=== PATIENT | female | born 1985 | race African-American/Black ===

== ENCOUNTER → 2023-04-17 | Emergency (ER) | payer OTHER ==
[~2023-04-17] MED LIST: CEFTRIAXONE 500 MG/VIAL ONE; KETOROLAC 30 MG/ML INJ ONE; MORPHINE 4 MG/ML SYR ONE; NA CHLORIDE 0.9% 1,000 ML ONE; ONDANSETRON 4 MG/2 ML VIAL ONE; PROMETHAZINE INJ 25 MG/ML AMP ONE
[2023-04-17 10:35] LABS: Absolute Lymphocytes (CBC) 1.7 K/uL (0.7-4.9); Hematocrit 33.3 % (36.0-45.0); Lymphocytes % 9.1 % (15.3-44.8); MCV 81.4 fL (80-100); MPV 8.5 fL (7.6-11.3); Platelets 221 thou/uL (152-406); RBC Red Blood Cell Count 4.09 M/uL (3.86-4.86)
[2023-04-17 10:49] LABS: Potassium 3.9 mEq/L (3.5-5.1)
--- NOTE | 2023-04-17 11:20 | RAD REPORT ---
EXAM DESCRIPTION: US - Pelvis Complete - 04/17/2023 10:53 am CLINICAL HISTORY: ABD PAIN COMPARISON: No comparisons TECHNIQUE: Sonographic grayscale and color flow images of the pelvis were obtained through transabd ominal approach. FINDINGS: The uterus is normal in size, measuring 9.3 cm in long axis. Nonspecific throughout hetero geneity. Ill-defined fibroid along the left uterine wall measuring 2.3 x 1.7 x 1.8 cm. The endometrial stripe measures 6 mm, normal. The right ovary measures 5.9 x 3.6 x 3.9 cm. Bilobed 4.2 cm cyst or dominant follicle in the right ov phil with thin septation. Tubular fluid-filled structure measuring 1.1 cm in diameter adjacent to the right ovary, may represent an area of a hydrosalpinx. No solid or otherwise suspicious adnexal masses . Normal Doppler blood flow was demonstrated to the right ovary. The left ovary could not be visualized due to over shadowing bowel gas. Trace pelvic fluid. IMPRESSION: Tubular right parovarian fluid-filled structure, may represent hydrosalpinx. Dominant cyst or follicle in the right ovary, bilobed in appearance, measuring 4.2 cm, likely a physi ologic nature. Follow-up ultrasound in 6-10 weeks is recommended. Likely physiologic trace pelvic fluid. Small left uterine wall fibroid measuring 2.3 cm. Nonvisualization of the left ovary limits evaluation.
[2023-04-17 11:30] LABS: Specific Gravity 1.022 (1.005-1.030)
[2023-04-17 11:35] LABS: Specific Gravity 1.022 (1.005-1.030); Urine Bacteria None Seen /HPF (<20); Urine Bilirubin NEGATIVE (Negative); Urine Blood 3+ (Negative); Urine Clarity Turbid (Clear); Urine Color Light-Yellow (Yellow); Urine Glucose NEGATIVE (Negative); Urine Mucus Slight /HPF (None Seen); Urine Protein NEGATIVE (Negative); Urine Sperm Present (None Seen); Urine Urobilinogen Normal (Normal); Urine pH 7.5 (5.0-7.0)
--- NOTE | 2023-04-17 11:56 | RAD REPORT ---
EXAM DESCRIPTION: CT - Abdomen Pelvis W Contrast - 04/17/2023 11:10 am CLINICAL HISTORY: ABD PAIN COMPARISON: Pelvis Complete dated 04/17/2023 TECHNIQUE: Thin cut axial CT imaging of the abdomen and pelvis was performed following intravenous a dministration of 100 mL Isovue 300. Multiplanar reformats were generated and reviewed. All CT scans are performed using dose optimization technique as appropriate and may include automated exposure control or mA/KV adjustment according to patient size. FINDINGS: No suspicious findings in the lung bases. The liver, spleen, adrenal glands, and pancreas show no suspicious findings. Gallbladder was surgical ly removed. Symmetric renal function is seen with no hydronephrosis or suspicious renal mass. No dilated bowel loops or bowel wall thickening. Appendix is unremarkable. No free air, fluid collect ions, inflammatory stranding. Trace free fluid is seen in the pelvis. No hernia, mass or bulky lympha denopathy. Right adnexal bilobed 5.3 cm cyst with thin septation, probably corresponds to the ovarian cyst seen on ultrasound. Posterior to this, an ill-defined cystic lesion is present, which may be paraovarian i n location, measuring 6.7 x 3.6 cm. Another tubular cystic lesion is present more anteriorly and furt her laterally, measuring 3.1 x 1.3 cm, which suggests a component of fallopian tube distention. Heter ogeneous enhancing prominent soft tissue measuring 3.9 x 3.3 cm is interposed between this component at the bilobed cyst, which may be of ovarian or tubal origin, and is nonspecific. Uterus shows some myometrial fullness posteriorly and heterogeneity suggesting underlying fibroids, w ith small nabothian cysts. The urinary bladder is decompressed limiting evaluation. No suspicious bony findings. IMPRESSION: Right ovarian and paraovarian cystic lesions as described above, with a 3.9 cm region of heterogeneously enhancing asymmetric right adnexal soft tissue prominence, and a tubular fluid-fille d component suggesting hydrosalpinx. Small volume free fluid is seen in the pelvis. While findings ar e nonspecific, possibility of pelvic inflammatory disease should be considered. Follow-up pelvic imag ing, at least with ultrasound, should be considered following resolution of any acute symptoms, to ex clude absence of an underlying suspicious mass.
--- NOTE | 2023-04-17 12:19 | EDPHYS ---
Physician Documentation [facility] Name: Halie Malcolm Age: 37 yrs Sex: Female : 1985 Arrival Date: 04/17/2023 Time: 09:34 Bed 3 Private MD: ED Physician Shawn King HPI: 04/17 10:00 This 37 yrs old Black Female presents to ER via Wheelchair with complaints of Abdominal jh7 Pain. 10:00 The patient presents with abdominal pain right lower quadrant. Onset: The jh7 symptoms/episode began/occurred 3 week(s) ago. The patient presents with pain that is acute, with no known mechanism of injury. Onset: The symptoms/episode began/occurred 3 week(s) ago. The pain does not radiate. Associated signs and symptoms: Pertinent positives: abdominal pain, nausea, Pertinent negatives: chest pain, dysuria, fever, hematuria, vomiting, weakness. 37-year-old female presents with right-sided abdominal/pelvic pain for the past 3 weeks. She reports that she was due to start her cycle 2 weeks ago and began spotting brown this morning. Describes the pain as cramping and denies any urinary symptoms or fever. She states that she feels nauseous but has not vomited. History of a tubal ligation and a cholecystectomy.. 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 - Social history:: Smoking status: Patient denies any tobacco usage or history of. ROS: 10:00 Constitutional: Negative for fever, chills, and weight loss, Eyes: Negative for injury, jh7 pain, redness, and discharge, Neck: Negative for injury, pain, and swelling, Cardiovascular: Negative for chest pain, palpitations, and edema, Respiratory: Negative for shortness of breath, cough, wheezing, and pleuritic chest pain, Back: Negative for injury and pain, : Negative for injury, bleeding, discharge, and swelling, MS/Extremity: Negative for injury and deformity, Skin: Negative for injury, rash, and discoloration, Neuro: Negative for headache, weakness, numbness, tingling, and seizure, 10:00 Abdomen/GI: Positive for abdominal pain, nausea, abdominal cramps, Negative for vomiting, diarrhea, constipation, black/tarry stool, rectal bleeding, 10:00 All other systems are negative, Exam: 10:00 Head/Face: Normocephalic, atraumatic. Neck: Trachea midline, no thyromegaly or masses jh7 palpated, and no cervical lymphadenopathy. Supple, full range of motion without nuchal rigidity, or vertebral point tenderness. No Meningismus. Cardiovascular: Regular rate and rhythm with a normal S1 and S2. No gallops, murmurs, or rubs. Normal PMI, no JVD. No pulse deficits. Respiratory: Lungs have equal breath sounds bilaterally, clear to auscultation and percussion. No rales, rhonchi or wheezes noted. No increased work of breathing, no retractions or nasal flaring. Back: No spinal tenderness. No costovertebral tenderness. Full range of motion. Skin: Warm, dry with normal turgor. Normal color with no rashes, no lesions, and no evidence of cellulitis. MS/ Extremity: Pulses equal, no cyanosis. Neurovascular intact. Full, normal range of motion. Neuro: Awake and alert, GCS 15, oriented to person, place, time, and situation. Motor strength 5/5 in all extremities. Sensory grossly intact. Normal gait. 10:00 Constitutional: The patient appears alert, awake, in obvious pain, 10:00 Abdomen/GI: Inspection: abdomen appears normal, Bowel sounds: normal, Palpation: soft, mild abdominal tenderness, in the right lower quadrant, moderate abdominal tenderness, 12:20 : Pelvic Exam: External exam: is normal, Speculum exam: moderate bleeding, no tissue jh7 in cervix is seen, Foul, fishlike odor consistent with bacterial vaginosis infection, bimanual exam reveals normal findings, Vital Signs: 10:00 BP 126 / 83; Pulse 88; Resp 16; Temp 98.2(O); Pulse Ox 100% on R/A; Weight 107.05 kg; hb Height 5 ft. 8 in. ; Pain 10/10; 10:00 Body Mass Index 35.88 (107.05 kg, 172.72 cm) hb 10:00 Pain Scale: Adult hb MDM: 09:[address] [facility] 12:20 Differential diagnosis: Pyelonephritis appendicitis, Ectopic , Ovarian [facility] Torsion, Tubal Ovarian Abcess, Ureterolithiasis, urinary tract infection, Hydrosalpinx, ovarian cyst, uterine fibroids, PID. Data reviewed: vital signs, nurses notes, lab test result(s), radiologic studies, CT scan, ultrasound. Management of patient was discussed with the following: ED attending physician, Dr. King. I considered the following discharge prescriptions or medication management in the emergency department Medications were administered in the Emergency Department. See MAR. Counseling: I had a detailed discussion with the patient and/or guardian regarding the historical points, exam findings, and any diagnostic results supporting the discharge/admit diagnosis, the need for outpatient follow up, an OB/Gyne specialist, to return to the emergency department if symptoms worsen or persist or if there are any questions or concerns that arise at home. Response to treatment: the patient's symptoms have markedly improved after treatment. ED course: Reviewed all labs and imaging with the patient. The patient denies concern for STI, stated she had been with the same partner for 4 years, and stated that they routinely get checked for STI. Informed her that hydrosalpinx is often caused by an untreated vaginal infection, so she agreed to treatment. Strongly advised follow-up ultrasound with EMERGENCY DEPARTMENT CLINICIAN. If the patient's symptoms return/worsen, she is advised to return to the ER for further eval.. 04/17 10:00 Order name: Basic Metabolic Panel; Complete Time: 11: [facility] 04/17 10:00 Order name: CBC with Diff; Complete Time: 10:48 [facility] 04/17 10:00 Order name: Test, Urine; Complete Time: 11:37 [facility] 04/17 10:00 Order name: Urinalysis w/ reflexes; Complete Time: 11: [facility] 04/17 12:40 Order name: Wet Prep [facility] 04/17 10:00 Order name: US Pelvis Complete; Complete Time: 11:26 [facility] 04/17 10:48 Order name: CT Abd/Pelvis - IV Contrast Only; Complete Time: 11:59 [facility] 04/17 10:00 Order name: IV Saline Lock; Complete Time: 10:28 [facility] 04/17 10:00 Order name: Labs collected and sent; Complete Time: [facility] 04/17 10:00 Order name: NPO; Complete Time: Administered Medications: 10: Drug: NS 0.9% IV 1000 ml IV at 1 bolus Per protocol; 1000 mL bolus Route: IV; Rate: 1 ph bolus; Site: right antecubital; 12:51 Follow up: Response: No adverse reaction; IV Status: Completed infusion cp4 10:27 Drug: morphine IVP or IV 4 mg IVP once over 4 mins Route: IVP; Infused Over: 4 mins; ph Site: right antecubital; 12:51 Follow up: Response: No adverse reaction cp4 11:57 Not Given (Other Intervention Used): ondansetron 4 mg IVP once; over 2 minutes ph 11:57 Drug: Ketorolac IVP 30 mg IVP once Route: IVP; Site: right antecubital; ph 12:51 Follow up: Response: No adverse reaction cp4 11:57 Drug: Promethazine IVP 12.5 mg IVP once Route: IVP; Site: right antecubital; ph 12:51 Follow up: Response: No adverse reaction cp4 12:36 Drug: Rocephin (cefTRIAXone) IM 500 mg IM once Route: IM; Site: left ventrogluteal; cp4 12:51 Follow up: Response: No adverse reaction cp4 12:37 Not Given (Duplicate Order): ns 0.9% 250 ml IV at bolus once cp4 Disposition: 13:55 Co-signature as Attending Physician, Shawn King MD I agree with the assessment and kdr plan of care. Disposition Summary: 04/17/23 12:18 Discharge Ordered Notes: Location: Home [facility] Problem: new [facility] Symptoms: have improved [facility] Condition: Stable [facility] Diagnosis - Chronic salpingitis jh7 - Other ovarian cysts jh7 - Uterine fibroids 7 Followup: [facility] - With: Private Physician - When: 2 - 3 days - Reason: Recheck today's complaints Discharge Instructions: - Discharge Summary Sheet 7 - Uterine Fibroids jh7 - Ovarian Cyst jh7 - Pelvic Inflammatory Disease jh7 - Salpingectomy [facility] Forms: - Medication Reconciliation Form [facility] - Thank You Letter [facility] - Antibiotic Education [facility] - Patient Portal Instructions [facility] - Leadership Thank You Letter [facility] Prescriptions: - Flagyl 500 mg Oral Tablet - take 1 tablet ORAL route every 12 hours for 7 days; 14 tablet; Refills: 0, [facility] Product Selection Permitted - Ibuprofen 800 mg Oral Tablet - take 1 tablet ORAL route every 8 hours As needed take with food; 30 tablet; 7 Refills: 0, Product Selection Permitted - Doxycycline Hyclate 100 mg Oral tablet - take 1 tablet ORAL route every 12 hours for 7 days; 14 tablet; Refills: 0, [facility] Product Selection Permitted - promethazine 25 mg Oral Tablet - take 1 tablet ORAL route every 6 hours As needed; 20 tablet; Refills: 0, [facility] Product Selection Permitted Signatures: Dispatcher [employer] EDShawn Daniels MD MD kdr Hall, Patricia RN RN Liberty Nelson, NANCY RN Maryuri Shell, LEGAL DOCUMENT ASSISTANT LEGAL DOCUMENT ASSISTANT [facility] Madeleine Covarrubias cp4
--- NOTE | 2023-04-17 12:19 | ER ---
Nurse's Notes [facility] Name: Halie Malcolm Age: 37 yrs Sex: Female : 1985 Arrival Date: 04/17/2023 Time: 09:34 Bed 3 Private MD: Diagnosis: Chronic salpingitis;Other ovarian cysts;Uterine fibroids Presentation: 04/17 10:00 Chief complaint: RLQ and pelvic pain x 2 weeks, became severe last night, spotty hb brownish vaginal discharge this morning. Coronavirus screen: At this time, the client does not indicate any symptoms associated with coronavirus-19. Ebola Screen: No symptoms or risks identified at this time. Initial Sepsis Screen: Does the patient meet any 2 criteria? No. Patient's initial sepsis screen is negative. Does the patient have a suspected source of infection? No. Patient's initial sepsis screen is negative. Risk Assessment: Do you want to hurt yourself or someone else? Patient reports no desire to harm self or others. Onset of symptoms was April 03, 2023. 10:00 Method Of Arrival: Wheelchair hb 10:00 Acuity: ALHAJI 3 hb Triage Assessment: 10:03 General: Appears in no apparent distress. uncomfortable, Behavior is calm, cooperative. hb Pain: Pain currently is 10 out of 10 on a pain scale. Neuro: Level of Consciousness is awake, alert, obeys commands, Oriented to person, place, time, situation. Cardiovascular: Patient's skin is warm and dry. Respiratory: Respiratory effort is even, unlabored, Respiratory pattern is regular, symmetrical. GI: Reports lower abdominal pain. 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 - Social history:: Smoking status: Patient denies any tobacco usage or history of. Screenin:30 [facility] ED Fall Risk Assessment (Adult) History of falling in the last 3 months, ph including since admission No falls in past 3 months (0 pts) Score/Fall Risk Level 0 - 2 = Low Risk Oriented to surroundings, Maintained a safe environment, Provided non-skid footwear, Hourly rounding (assess needs \T\ fall precautionary measures) done. Abuse screen: Denies threats or abuse. Denies injuries from another. Nutritional screening: No deficits noted. Tuberculosis screening: No symptoms or risk factors identified. Assessment: 10:28 Reassessment: Pt taken for US. ph 10:36 General: Appears. ph 11:29 Pain: Complains of pain in right lower quadrant Pain radiates to right leg. Neuro: ph Level of Consciousness is awake, alert, obeys commands, Oriented to person, place, time, situation. Cardiovascular: Capillary refill < 3 seconds in bilateral fingers Patient's skin is warm and dry. Respiratory: Airway is patent Respiratory effort is even, unlabored, Respiratory pattern is regular, symmetrical. GI: Reports nausea. : Reports vaginal bleeding that is brown, spotty. Derm: Skin is pink, warm \T\ dry. Vital Signs: 10:00 BP 126 / 83; Pulse 88; Resp 16; Temp 98.2(O); Pulse Ox 100% on R/A; Weight 107.05 kg; hb Height 5 ft. 8 in. ; Pain 10/10; 10:00 Body Mass Index 35.88 (107.05 kg, 172.72 cm) hb 10:00 Pain Scale: Adult hb ED Course: 09:36 Patient arrived in ED. mr 09:45 Maryuri Shell FNP [facility] 09:45 Shawn King MD is Attending Physician. [facility] 10:02 Triage completed. hb 10:03 Arm band placed on. hb 10:10 Jessa Ruiz, RN is Primary Nurse. ph 10:25 Initial lab(s) drawn, by mn, sent to lab. Inserted saline lock: 22 gauge in right ph antecubital area, using aseptic technique. Blood collected. 10:28 Basic Metabolic Panel Sent. ph 10:28 CBC with Diff Sent. ph 10:55 US Pelvis Complete In Process Unspecified. EDMS 11:11 CT Abd/Pelvis - IV Contrast Only In Process Unspecified. EDMS 11:31 Patient has correct armband on for positive identification. Bed in low position. Call ph light in reach. Side rails up X 1. Pulse ox on. NIBP on. Warm blanket given. 12:20 Assist provider with pelvic exam: Set up pelvic tray. Performed by Maryuri BHATTI aa5 Specimens sent to lab. Patient tolerated well. 12:54 Provided Education on: PID, ovarian cyst. cp4 12:54 intact, bleeding controlled, No redness/swelling at site. Pressure dressing applied. cp4 Administered Medications: 10:27 Drug: NS 0.9% IV 1000 ml IV at 1 bolus Per protocol; 1000 mL bolus Route: IV; Rate: 1 ph bolus; Site: right antecubital; 12:51 Follow up: Response: No adverse reaction; IV Status: Completed infusion cp4 10:27 Drug: morphine IVP or IV 4 mg IVP once over 4 mins Route: IVP; Infused Over: 4 mins; ph Site: right antecubital; 12:51 Follow up: Response: No adverse reaction cp4 11:57 Not Given (Other Intervention Used): ondansetron 4 mg IVP once; over 2 minutes ph 11:57 Drug: Ketorolac IVP 30 mg IVP once Route: IVP; Site: right antecubital; ph 12:51 Follow up: Response: No adverse reaction cp4 11:57 Drug: Promethazine IVP 12.5 mg IVP once Route: IVP; Site: right antecubital; ph 12:51 Follow up: Response: No adverse reaction cp4 12:36 Drug: Rocephin (cefTRIAXone) IM 500 mg IM once Route: IM; Site: left ventrogluteal; cp4 12:51 Follow up: Response: No adverse reaction cp4 12:37 Not Given (Duplicate Order): ns 0.9% 250 ml IV at bolus once cp4 Medication: 11:31 VIS not applicable for this client. ph Outcome: 12:18 Discharge ordered by MD. jernigan 12:54 Discharged to home ambulatory, cp4 12:54 Condition: stable 12:54 Discharge instructions given to patient, Instructed on discharge instructions, follow up and referral plans. medication usage, Demonstrated understanding of instructions, follow-up care, medications, Prescriptions given X 4, 12:55 Patient left the ED. cp4 Signatures: Dispatcher [facility] Shyla Mccoy, John Lopez mr Lois Tobar, RN RN aa5 Jessa Ruiz RN RN Liberty Miller, RN RN Maryuri Shell FNP EQUIPMENT STERILIZER jh7 Madeleine Covarrubias cp4 Corrections: (The following items were deleted from the chart) 13:03 12:54 No provider procedures requiring assistance completed. cp4 aa5
[2023-04-17 13:11] VITALS: BP 126/83; TEMP 98.2; O2SAT 100
[2023-04-20 03:36] LABS: C.trachomatis RNA,TMA Not Detected (Not Detected)
== END ==
LOC: ER 09:34
DX: N70.11 Chronic salpingitis (principal); N83.291 Other ovarian cyst, right side; D25.9 Leiomyoma of uterus, unspecified; Z88.8 Allergy status to other drugs, medicaments and biological substances; Z91.02 Food additives allergy status
CPT/HCPCS: 85025; 81001; 80048; 36415; 81025; 87210; 87590; 87490; 74177; 76856; Q9967; J2550; J2405; J7030; 96361; 96372; 96374; 96375; 99284

== ENCOUNTER → 2023-04-19 | Emergency (ER) | payer OTHER ==
[~2023-04-19] MED LIST changes: +CEFTRIAXONE 1000 MG/VIAL ONE; -CEFTRIAXONE 500 MG/VIAL ONE; +DOXYCYCLINE 100 MG CAP PO ONE; +HYDROMORPHONE HCL 1 MG/ML INJ ONE; -KETOROLAC 30 MG/ML INJ ONE; +Levofloxacin 750mg IV 750 MG/150 ML BAG IV ONE
[2023-04-19 17:03] LABS: Specific Gravity 1.021 (1.005-1.030)
[2023-04-19 17:04] LABS: Absolute Lymphocytes (CBC) 2.7 K/uL (0.7-4.9); Hematocrit 29.4 % (36.0-45.0); Lymphocytes % 17.4 % (15.3-44.8); MCV 81.4 fL (80-100); MPV 8.6 fL (7.6-11.3); Platelets 225 thou/uL (152-406); RBC Red Blood Cell Count 3.62 M/uL (3.86-4.86)
[2023-04-19 17:07] LABS: Specific Gravity 1.021 (1.005-1.030); Urine Bacteria 20-50 /HPF (<20); Urine Bilirubin NEGATIVE (Negative); Urine Blood 3+ (OVER) (Negative); Urine Clarity Extremely Turbid (Clear); Urine Color Light-Orange (Yellow); Urine Glucose NEGATIVE (Negative); Urine Mucus Slight /HPF (None Seen); Urine Protein TRACE (Negative); Urine RBC >50 /HPF (None Seen); Urine Urobilinogen Normal (Normal); Urine pH 7.5 (5.0-7.0)
--- NOTE | 2023-04-19 17:54 | RAD REPORT ---
EXAM DESCRIPTION: CT - Abdomen Pelvis W Contrast - 04/19/2023 4:59 pm CLINICAL HISTORY: Abdominal pain COMPARISON: April 17, 2023 TECHNIQUE: Computed axial tomography of the abdomen pelvis was obtained. 100 cc Isovue-300 was admin istered intravenously. Oral contrast was not requested which limits evaluation of bowel and appendix All CT scans are performed using dose optimization technique as appropriate and may include automated exposure control or mA/KV adjustment according to patient size. FINDINGS: The liver, pancreas, adrenal and kidneys appear unremarkable. Small splenic cyst There is no evidence of diverticulitis. A cholecystectomy. Right hydrosalpinx. A 7 centimeter complex cystic structure right adnexal unchanged no significant fr ee fluid IMPRESSION: No change in a right hydrosalpinx and complex cystic right ovarian mass since March [id number] Followup ultrasound in a couple months recommended for re-evaluation
--- NOTE | 2023-04-19 17:56 | RAD REPORT ---
EXAM DESCRIPTION: US - Transvaginal Study Probe - 04/19/2023 5:38 pm CLINICAL HISTORY: Pelvic pain COMPARISON: April 17, 2023 FINDINGS: The uterus measures 10 x 5 x 6 cm. Endometrial stripe normal thickness. A fibroid unchange d. Right ovary demonstrates blood flow a contains follicles. Left ovary contains follicles normal size and echotexture. Left adnexal unremarkable 7 centimeter complex cystic mass right adnexa unchanged No significant free fluid is seen. IMPRESSION: 7 centimeter complex cystic mass right adnexal unchanged may represent a benign complex ovarian cyst. Ovarian cystadenoma is another consideration. Followup ultrasound in a couple months re commended for re-evaluation Right hydrosalpinx
--- NOTE | 2023-04-19 18:34 | EDPHYS ---
Physician Documentation [facility] Name: Halie Malcolm Age: 37 yrs Sex: Female : 1985 Arrival Date: 04/19/2023 Time: 14:27 Bed IW10 Private MD: JUDY Physician Narinder Stone HPI: 04/19 18:25 This 37 yrs old Black Female presents to ER via Wheelchair with complaints of Pain. roni Historical: - Allergies: 14:45 Red Dye #2; ap3 14:45 Tegretol; ap3 - PSHx: 14:45 Cholecystectomy; D\T\C; tubal ligation; ap3 - Immunization history:: Client reports having NOT received the Covid vaccine. Flu vaccine is up to date. - Social history:: Smoking status: Patient reports the use of cigarette tobacco products, cigars. ROS: 18:27 Constitutional: Negative for fever, chills, and weight loss, Eyes: Negative for injury, roni pain, redness, and discharge, ENT: Negative for injury, pain, and discharge, Neck: Negative for injury, pain, and swelling, Cardiovascular: Negative for chest pain, palpitations, and edema, Respiratory: Negative for shortness of breath, cough, wheezing, and pleuritic chest pain, Back: Negative for injury and pain, : Negative for injury, bleeding, discharge, and swelling, MS/Extremity: Negative for injury and deformity, Skin: Negative for injury, rash, and discoloration, Neuro: Negative for headache, weakness, numbness, tingling, and seizure, Psych: Negative for depression, anxiety, suicide ideation, homicidal ideation, and hallucinations, Allergy/Immunology: Negative for hives, rash, and allergies, Endocrine: Negative for neck swelling, polydipsia, polyuria, polyphagia, and marked weight changes, Hematologic/Lymphatic: Negative for swollen nodes, abnormal bleeding, and unusual bruising, 18:27 Abdomen/GI: Positive for abdominal distension, of the right lower quadrant and left lower quadrant, Exam: 18:27 Constitutional: This is a well developed, well nourished patient who is awake, alert, roni and in no acute distress. Head/Face: Normocephalic, atraumatic. Eyes: Pupils equal round and reactive to light, extra-ocular motions intact. Lids and lashes normal. Conjunctiva and sclera are non-icteric and not injected. Cornea within normal limits. Periorbital areas with no swelling, redness, or edema. ENT: Nares patent. No nasal discharge, no septal abnormalities noted. Tympanic membranes are normal and external auditory canals are clear. Oropharynx with no redness, swelling, or masses, exudates, or evidence of obstruction, uvula midline. Mucous membranes moist. Neck: Trachea midline, no thyromegaly or masses palpated, and no cervical lymphadenopathy. Supple, full range of motion without nuchal rigidity, or vertebral point tenderness. No Meningismus. Chest/axilla: Normal chest wall appearance and motion. Nontender with no deformity. No lesions are appreciated. Cardiovascular: Regular rate and rhythm with a normal S1 and S2. No gallops, murmurs, or rubs. Normal PMI, no JVD. No pulse deficits. Respiratory: Lungs have equal breath sounds bilaterally, clear to auscultation and percussion. No rales, rhonchi or wheezes noted. No increased work of breathing, no retractions or nasal flaring. Back: No spinal tenderness. No costovertebral tenderness. Full range of motion. Skin: Warm, dry with normal turgor. Normal color with no rashes, no lesions, and no evidence of cellulitis. MS/ Extremity: Pulses equal, no cyanosis. Neurovascular intact. Full, normal range of motion. Neuro: Awake and alert, GCS 15, oriented to person, place, time, and situation. Cranial nerves II-XII grossly intact. Motor strength 5/5 in all extremities. Sensory grossly intact. Cerebellar exam normal. Normal gait. 18:27 Abdomen/GI: Inspection: abdomen appears normal, Bowel sounds: normal, Palpation: moderate abdominal tenderness, in the right lower quadrant and left lower quadrant, Liver: no appreciated palpable abnormalities, Hernia: not appreciated, Vital Signs: 14:44 BP 130 / 79; Pulse 78; Resp 18; Temp 98; Pulse Ox 100% ; Weight 107.95 kg; Height 5 ft. ap3 8 in. ; Pain 10/10; 18:30 BP 127 / 79; Pulse 70; Resp 14; Pulse Ox 98% ; ko1 19:30 BP 133 / 83; Pulse 70; Resp 16; Pulse Ox 99% ; jj7 20:30 BP 137 / 87; Pulse 67; Resp 17; Pulse Ox 98% ; jj7 21:10 BP 132 / 86; Pulse 76; Resp 19; Pulse Ox 98% ; Pain 2/10; jj7 14:44 Body Mass Index 36.19 (107.95 kg, 172.72 cm) ap3 14:44 Pain Scale: Adult ap3 21:10 Pain Scale: Adult jj7 MDM: 14:31 Patient medically screened. roni 18:28 Differential diagnosis: ectopic , kidney stone, ovarian cyst, uterine roni fibroids, urinary tract infection, bowel obstruction, diverticulitis, Ectopic , Endometriosis, Irritable bowel syndrome, Menorrhagia, Mesenteric ischemia or infarction, non-specific abd pain, Ovarian Torsion. Data reviewed: vital signs, nurses notes, lab test result(s), radiologic studies, CT scan, ultrasound. Consideration of Admission/Observation Escalation of care including admission/observation considered. I considered the following discharge prescriptions or medication management in the emergency department Medications were administered in the Emergency Department. See MAR. Independent interpretation of the following test(s) in the Emergency Department CT Scan: My interpretation is CT ABD/PELVIS. Test considered but Not performed: EKG: NO EKG. Historians other than the Patient: PT WELL INFORMED. Care significantly affected by the following chronic conditions: Obesity. 04/19 15:27 Order name: CBC with Diff; Complete Time: 17:41 [facility] 04/19 15:27 Order name: Test, Urine; Complete Time: 17:41 [facility] 04/19 15:27 Order name: Urinalysis w/ reflexes; Complete Time: 17:41 [facility] 04/19 17:17 Order name: Urine Culture [facility] 04/19 15:27 Order name: CT Abd/Pelvis - IV Contrast Only; Complete Time: 18:22 [facility] 04/19 15:27 Order name: US Transvaginal Study (Probe); Complete Time: 18:22 [facility] 04/19 15:27 Order name: IV Saline Lock; Complete Time: 16:46 [facility] 04/19 15:27 Order name: Labs collected and sent; Complete Time: 16:46 [facility] Administered Medications: 16:47 Drug: NS 0.9% IV 1000 ml IV at 1 bolus Per protocol; 1000 mL bolus Route: IV; Rate: 1 ko1 bolus; Site: right forearm; 16:47 Not Given (Patient Refused): ondansetron 4 mg IVP once; over 2 minutes ko1 16:47 Drug: morphine IVP or IV 4 mg IVP once over 4 mins Route: IVP; Infused Over: 4 mins; ko1 Site: right forearm; 18:12 Drug: Rocephin IV 1 grams IV at per protocol once; Given slow IV push per pharmacy ko1 instructions Route: IV; Rate: per protocol; Site: right forearm; 19:07 Follow up: Response: No adverse reaction jj7 19:07 Follow up: IV Status: Completed infusion jj7 18:13 Drug: Promethazine IVP 12.5 mg IVP once Route: IVP; Site: right forearm; ko1 19:07 Follow up: Response: Nausea is decreased jj7 18:13 Drug: HYDROmorphone IVP 1 mg IVP once Route: IVP; Site: right forearm; ko1 19:07 Follow up: Response: Marked relief of symptoms jj7 19:35 Drug: levofloxacin IVPB 750 mg 150 ml IVPB once over 90 mins Volume: 150 ml; Route: j IVPB; Infused Over: 90 mins; Site: right antecubital; 21:15 Follow up: IV Status: Infusion continued upon transfer jj7 19:43 Drug: Doxycycline PO 200 mg PO once Route: PO; jj7 21:00 Follow up: Response: No adverse reaction jj7 20:05 Drug: HYDROmorphone IVP 1 mg IVP once Route: IVP; Site: right antecubital; jj7 20:30 Follow up: Response: Marked relief of symptoms; Pain is decreased jj7 20:05 Drug: Promethazine IVP 12.5 mg IVP once Route: IVP; Site: right antecubital; jj7 21:15 Follow up: Response: Marked relief of symptoms jj7 Disposition Summary: 04/19/23 18:34 Transfer Ordered Notes: Transfer Location: [facility] roni Reason: Higher level of care roni Condition: Stable roni Problem: new roni Symptoms: have improved roni Accepting Physician: JANINE CRUZ(04/19/23 21:25) jj7 Diagnosis - Other ovarian cysts - 7 CM COMPLEX CYST, HYDROSALPINX roni - Elevated white blood cell count roni - Abdominal tenderness roni - UTI/ Urinary tract infection, site not specified roni - Anemia, unspecified roni Forms: - Medication Reconciliation Form roni - SBAR form roni Signatures: Dispatcher [employer] Narinder Wilks MD MD cha Prokisch, Amanda, RN RN ap3 Arielle Muñoz RN RN ko1 Prashanth Dennis RN RN jj7 Corrections: (The following items were deleted from the chart) 19:52 18:34 TO ANTHONY tamayo cha 21:25 19:52 TO ANTHONY bhatj7
--- NOTE | 2023-04-19 18:34 | ER ---
Nurse's Notes [facility] Name: Halie Malcolm Age: 37 yrs Sex: Female : 1985 Arrival Date: 04/19/2023 Time: 14:27 Bed IW10 Private MD: Diagnosis: Other ovarian cysts-7 CM COMPLEX CYST, HYDROSALPINX;Elevated white blood cell count;Abdominal tenderness;UTI/ Urinary tract infection, site not specified;Anemia, unspecified Presentation: 04/19 14:44 Chief complaint: Patient states: she was evaluated here a few days ago and was told she ap3 has cysts on her ovaries. patient reports her pain is getting worse since her last visit. patient reports her pain is currently a 10/10 on the pain scale, located on the lower right side of her abdomen, radiating down her right leg. Coronavirus screen: At this time, the client does not indicate any symptoms associated with coronavirus-19. Ebola Screen: No symptoms or risks identified at this time. Initial Sepsis Screen: Does the patient meet any 2 criteria? No. Patient's initial sepsis screen is negative. Risk Assessment: Do you want to hurt yourself or someone else? Patient reports no desire to harm self or others. Onset of symptoms is unknown. 14:44 Method Of Arrival: Wheelchair ap3 14:44 Acuity: ALHAJI 3 ap3 Triage Assessment: 14:46 General: Appears in no apparent distress. Behavior is calm, cooperative, appropriate ap3 for age. Pain: Complains of pain in right lower quadrant Pain radiates to right leg Pain currently is 10 out of 10 on a pain scale. Neuro: Level of Consciousness is awake, alert, obeys commands, Oriented to person, place, time, situation, Appropriate for age. Cardiovascular: Patient's skin is warm and dry. Respiratory: Airway is patent Respiratory effort is even, unlabored, Respiratory pattern is regular, symmetrical. GI: Reports lower abdominal pain, nausea. Historical: - Allergies: 14:45 Red Dye #2; ap3 14:45 Tegretol; ap3 - PSHx: 14:45 Cholecystectomy; D\T\C; tubal ligation; ap3 - Immunization history:: Client reports having NOT received the Covid vaccine. Flu vaccine is up to date. - Social history:: Smoking status: Patient reports the use of cigarette tobacco products, cigars. Screenin:46 [facility] ED Fall Risk Assessment (Adult) History of falling in the last 3 months, ap3 including since admission No falls in past 3 months (0 pts). Abuse screen: Denies threats or abuse. Nutritional screening: No deficits noted. Tuberculosis screening: No symptoms or risk factors identified. Assessment: 16:30 General: Appears distressed, uncomfortable, Behavior is appropriate for age, crying. ko1 Pain: Complains of pain in left lower quadrant and abdomen and right lower quadrant. Neuro: No deficits noted. Cardiovascular: No deficits noted. Respiratory: No deficits noted. GI: Reports lower abdominal pain, nausea. : No deficits noted. EENT: No deficits noted. Derm: No deficits noted. Musculoskeletal: No deficits noted. 19:07 Reassessment: ASSUMED CARE OF PT. PT SITTING IN BED TALKING TO FAMILY. VS STABLE. PT jj7 INFORMED OF IMPENDING TRANSFER. CALL ROJAS IN REACH. General: Appears in no apparent distress. uncomfortable, Behavior is calm, cooperative, appropriate for age. 20:35 Reassessment: REPORT GIVEN TO ANNA CRUZ AT [facility]. jj7 Vital Signs: 14:44 BP 130 / 79; Pulse 78; Resp 18; Temp 98; Pulse Ox 100% ; Weight 107.95 kg; Height 5 ft. ap3 8 in. ; Pain 10/10; 18:30 BP 127 / 79; Pulse 70; Resp 14; Pulse Ox 98% ; ko1 19:30 BP 133 / 83; Pulse 70; Resp 16; Pulse Ox 99% ; jj7 20:30 BP 137 / 87; Pulse 67; Resp 17; Pulse Ox 98% ; jj7 21:10 BP 132 / 86; Pulse 76; Resp 19; Pulse Ox 98% ; Pain 2/10; jj7 14:44 Body Mass Index 36.19 (107.95 kg, 172.72 cm) ap3 14:44 Pain Scale: Adult ap3 21:10 Pain Scale: Adult jj7 ED Course: 14:29 Patient arrived in ED. mg5 14:31 Narinder Stone MD is Attending Physician. roni 14:45 Triage completed. ap3 14:46 Arm band placed on right wrist. ap3 15:46 Arielle Muñoz, NANCY is Primary Nurse. ko1 16:44 Inserted saline lock: 20 gauge in right forearm, using aseptic technique. ,using nj1 aseptic technique. Ultrasound guided. Catheter tip well visualized within vasculature during placement. Blood collected. 16:46 CBC with Diff Sent. ko1 16:46 CMP Sent. ko1 16:46 Lipase Sent. ko1 16:54 Test, Urine Sent. ko1 16:54 Urinalysis w/ reflexes Sent. ko1 17:01 CT Abd/Pelvis - IV Contrast Only In Process Unspecified. EDMS 17:40 US Transvaginal Study (Probe) In Process Unspecified. EDMS 18:30 Patient has correct armband on for positive identification. Allergy band placed. Placed ko1 in gown. Bed in low position. Call light in reach. Side rails up X2. Provided Education on: na. Client placed on continuous cardiac and pulse oximetry monitoring. NIBP monitoring applied. monitoring specialist on. Door closed. Noise minimized. Lights dimmed. Warm blanket given. 18:30 No provider procedures requiring assistance completed. ko1 18:37 initiated transfer to [facility]. bd 20:03 called EMS to transport to [facility]. vk 21:15 Patient transferred, IV remains in place. jj7 Administered Medications: 16:47 Drug: NS 0.9% IV 1000 ml IV at 1 bolus Per protocol; 1000 mL bolus Route: IV; Rate: 1 ko1 bolus; Site: right forearm; 16:47 Not Given (Patient Refused): ondansetron 4 mg IVP once; over 2 minutes ko1 16:47 Drug: morphine IVP or IV 4 mg IVP once over 4 mins Route: IVP; Infused Over: 4 mins; ko1 Site: right forearm; 18:12 Drug: Rocephin IV 1 grams IV at per protocol once; Given slow IV push per pharmacy ko1 instructions Route: IV; Rate: per protocol; Site: right forearm; 19:07 Follow up: Response: No adverse reaction jj7 19:07 Follow up: IV Status: Completed infusion jj7 18:13 Drug: Promethazine IVP 12.5 mg IVP once Route: IVP; Site: right forearm; ko1 19:07 Follow up: Response: Nausea is decreased jj7 18:13 Drug: HYDROmorphone IVP 1 mg IVP once Route: IVP; Site: right forearm; ko1 19:07 Follow up: Response: Marked relief of symptoms jj7 19:35 Drug: levofloxacin IVPB 750 mg 150 ml IVPB once over 90 mins Volume: 150 ml; Route: jj7 IVPB; Infused Over: 90 mins; Site: right antecubital; 21:15 Follow up: IV Status: Infusion continued upon transfer jj7 19:43 Drug: Doxycycline PO 200 mg PO once Route: PO; jj7 21:00 Follow up: Response: No adverse reaction jj7 20:05 Drug: HYDROmorphone IVP 1 mg IVP once Route: IVP; Site: right antecubital; jj7 20:30 Follow up: Response: Marked relief of symptoms; Pain is decreased jj7 20:05 Drug: Promethazine IVP 12.5 mg IVP once Route: IVP; Site: right antecubital; jj7 21:15 Follow up: Response: Marked relief of symptoms jj7 Medication: 18:30 VIS not applicable for this client. ko1 Outcome: 18:34 ER care complete, transfer ordered by MD. tamayo 21:15 Transferred by ground EMS [facility] to [facility], Transfer form jj7 completed. X-rays sent w/ patient. 21:15 Condition: improved 21:25 Patient left the ED. jj7 Signatures: Dispatcher [employer] EDMS Destiney Jacobsen Corey, MD MD cha Prokisch, Amanda RN RN ap3 Arielle Muñoz RN RN ko1 Prashanth Dennis RN RN jj7 Lissett Kirby RN RN nj [place] [id number] Jaqcueline Mazariegos
[2023-04-19 21:51] VITALS: BP 132/86; TEMP 98; O2SAT 98
== END ==
LOC: ER 14:27
DX: N83.291 Other ovarian cyst, right side (principal); N39.0 Urinary tract infection, site not specified; N70.11 Chronic salpingitis; D64.9 Anemia, unspecified; D72.829 Elevated white blood cell count, unspecified; Z88.8 Allergy status to other drugs, medicaments and biological substances; Z91.02 Food additives allergy status; Z72.0 Tobacco use; Z28.310 Unvaccinated for COVID-19
CPT/HCPCS: 87088; 85025; 81001; 87086; 81025; 74177; 76830; 99285; Q9967; J2550 ×2; J1170 ×2; J2405; J7030; J0696

== ENCOUNTER → 2023-05-12 | Emergency (ER) | payer OTHER ==
[~2023-05-12] MED LIST changes: +ALBUTEROL 2.5 MG/3 ML NEB SOL ONE; -CEFTRIAXONE 1000 MG/VIAL ONE; -DOXYCYCLINE 100 MG CAP PO ONE; -HYDROMORPHONE HCL 1 MG/ML INJ ONE; +IBUPROFEN 400 MG TAB ONE; +IPRATROPIUM BROM 0.5MG/2.5ML ONE; -Levofloxacin 750mg IV 750 MG/150 ML BAG IV ONE; -MORPHINE 4 MG/ML SYR ONE; -NA CHLORIDE 0.9% 1,000 ML ONE; -ONDANSETRON 4 MG/2 ML VIAL ONE; -PROMETHAZINE INJ 25 MG/ML AMP ONE
--- NOTE | 2023-05-12 09:41 | RAD REPORT ---
EXAM DESCRIPTION: Con Single View05/12/2023 9:22 am CLINICAL HISTORY: MALAISE COMPARISON: No comparisons TECHNIQUE: Portable AP view of the chest. FINDINGS: The lungs are clear. No pneumothorax or effusion. The cardiomediastinal contours are unre markable. IMPRESSION: No acute cardiopulmonary process.
[2023-05-12 10:22] LABS: SARS-CoV-2 Antigen CONTROL BLUE LINE VIS/BG OK; SARS-CoV-2 Antigen Rapid Res Negative (Negative)
--- NOTE | 2023-05-12 10:35 | ER ---
Nurse's Notes [facility] Name: Halie Malcolm Age: 37 yrs Sex: Female : 1985 Arrival Date: 05/12/2023 Time: 08:05 Bed 6 Private MD: Diagnosis: Streptococcal pharyngitis Presentation: 05/11 08:20 Chief complaint: Patient states: Sore throat, N/V, body aches, fatigue for 3 days. No ll1 fever. Coronavirus screen: Client denies travel out of the [place] in the last 14 days. fatigue, headache, sore throat, Client presents with at least one sign or symptom that may indicate coronavirus-19. Standard/surgical mask placed on the client. Ebola Screen: Patient denies travel to an Ebola-affected area in the 21 days before illness onset. Initial Sepsis Screen: Does the patient meet any 2 criteria? No. Patient's initial sepsis screen is negative. Does the patient have a suspected source of infection? No. Patient's initial sepsis screen is negative. Risk Assessment: Do you want to hurt yourself or someone else? Patient reports no desire to harm self or others. Onset of symptoms was May 10, 2023. 08:20 Method Of Arrival: Ambulatory ll1 08:20 Acuity: ALHAJI 3 ll1 Triage Assessment: 08:22 General: Appears uncomfortable, ill, Behavior is calm, cooperative, appropriate for ll1 age. General: Reports feeling ill for fatigue for. Pain: Complains of pain in throat Quality of pain is described as aching. EENT: Reports pain when swallowing. Neuro: Reports headache. GI: Reports cramping, nausea, vomiting. Historical: - Allergies: 08:19 Red Dye #2; ll1 08:19 Tegretol; ll1 - PMHx: 08:19 None; ll1 - PSHx: 08:19 Cholecystectomy; D\T\C; tubal ligation; partial hysterectomy; ll1 - Immunization history:: Adult Immunizations up to date. - Social history:: Smoking status: Patient reports the use of cigarette tobacco products, cigars. Screenin:50 [facility] ED Fall Risk Assessment (Adult) History of falling in the last 3 months, bp including since admission No falls in past 3 months (0 pts). Abuse screen: Denies threats or abuse. Denies injuries from another. Nutritional screening: No deficits noted. Tuberculosis screening: No symptoms or risk factors identified. Assessment: 08:20 General: SEE TRIAGE NOTE. GI: Abdomen is non-distended. bp Vital Signs: 08:20 BP 140 / 96; Pulse 84; Resp 16; Temp 98.2; Pulse Ox 100% on R/A; Weight 107.05 kg; ll1 Height 5 ft. 8 in. ; Pain 10/10; 09:53 BP 147 / 108; Pulse 66; Resp 16; Pulse Ox 100% ; bp 08:20 Body Mass Index 35.88 (107.05 kg, 172.72 cm) ll1 08:20 Pain Scale: Adult ll1 ED Course: 08:08 Patient arrived in ED. mg5 08:11 Jed Ponce MD is Attending Physician. sp3 08:12 Wolfgang Verde, RN is Primary Nurse. rs5 08:19 Arm band placed on Patient placed in an exam room, on a stretcher. ll1 08:22 Triage completed. ll1 08:50 Patient has correct armband on for positive identification. bp 09:10 Flu Sent. bp 09:10 Strep Sent. bp 09:10 SARS RAPID Sent. bp 09:24 Chest Single View XRAY In Process Unspecified. EDMS Administered Medications: 09:53 Drug: DuoNeb Nebulize (3:1) (2.5 mg - 0.5 mg) 3 ml Nebulizer once Route: Nebulizer; bp 09:53 Drug: Ibuprofen PO 600 mg PO once Route: PO; bp Outcome: 10:34 Discharge ordered by . sp3 10:55 Patient left the ED. rs5 Signatures: Dispatcher [employer] EDMS Malik Horvath RN RN bp Meño Christine RN RN ll1 Jed Ponce MD MD sp3 Wolfgang Verde, NANCY RN rs5 Tessie Hickey mg5
--- NOTE | 2023-05-12 10:35 | EDPHYS ---
Physician Documentation [facility] Name: Halie Malcolm Age: 37 yrs Sex: Female : 1985 Arrival Date: 05/12/2023 Time: 08:05 Bed 6 Private MD: ED Physician Jed Ponce HPI: 05/11 09:40 This 37 yrs old Black Female presents to ER via Ambulatory with complaints of Vomiting, sp3 Difficulty Swallowing, Headache. 09:40 37-year-old female with no past medical history presents with chief complaint sore sp3 throat, vomiting and mild headache. Patient's symptoms have been going on for the last 2 to 3 days. She denies any other symptoms including fever, productive cough, abdominal pain, diarrhea, back pain, known sick contacts, prolonged immobilization, travel history, or any other signs or symptoms on ROS at this time.. Historical: - Allergies: 08:19 Red Dye #2; ll1 08:19 Tegretol; ll1 - PMHx: 08:19 None; ll1 - PSHx: 08:19 Cholecystectomy; D\T\C; tubal ligation; partial hysterectomy; ll1 - Immunization history:: Adult Immunizations up to date. - Social history:: Smoking status: Patient reports the use of cigarette tobacco products, cigars. ROS: 09:41 Constitutional: Negative for fever, chills, and weight loss, Eyes: Negative for injury, sp3 pain, redness, and discharge, Neck: Negative for injury, pain, and swelling, Cardiovascular: Negative for chest pain, palpitations, and edema, Respiratory: Negative for shortness of breath, cough, wheezing, and pleuritic chest pain, Back: Negative for injury and pain, MS/Extremity: Negative for injury and deformity, Skin: Negative for injury, rash, and discoloration, Neuro: Negative for headache, weakness, numbness, tingling, and seizure, Psych: Negative for depression, anxiety, suicide ideation, homicidal ideation, and hallucinations, Allergy/Immunology: Negative for hives, rash, and allergies, Endocrine: Negative for neck swelling, polydipsia, polyuria, polyphagia, and marked weight changes, Hematologic/Lymphatic: Negative for swollen nodes, abnormal bleeding, and unusual bruising, 09:41 All other systems are negative, Exam: 09:41 Constitutional: This is a well developed, well nourished patient who is awake, alert, sp3 and in no acute distress. Head/Face: Normocephalic, atraumatic. Eyes: Pupils equal round and reactive to light, extra-ocular motions intact. Lids and lashes normal. Conjunctiva and sclera are non-icteric and not injected. Cornea within normal limits. Periorbital areas with no swelling, redness, or edema. Neck: Trachea midline, no thyromegaly or masses palpated, and no cervical lymphadenopathy. Supple, full range of motion without nuchal rigidity, or vertebral point tenderness. No Meningismus. Chest/axilla: Normal chest wall appearance and motion. Nontender with no deformity. No lesions are appreciated. Cardiovascular: Regular rate and rhythm with a normal S1 and S2. No gallops, murmurs, or rubs. Normal PMI, no JVD. No pulse deficits. Abdomen/GI: Soft, non-tender, with normal bowel sounds. No distension or tympany. No guarding or rebound. No evidence of tenderness throughout. Back: No spinal tenderness. No costovertebral tenderness. Full range of motion. Skin: Warm, dry with normal turgor. Normal color with no rashes, no lesions, and no evidence of cellulitis. MS/ Extremity: Pulses equal, no cyanosis. Neurovascular intact. Full, normal range of motion. Neuro: Awake and alert, GCS 15, oriented to person, place, time, and situation. Cranial nerves II-XII grossly intact. Motor strength 5/5 in all extremities. Sensory grossly intact. Cerebellar exam normal. Normal gait. Psych: Awake, alert, with orientation to person, place and time. Behavior, mood, and affect are within normal limits. 09:41 ENT: Pharyngeal erythema noted. Patient also has a mild cough with scattered wheeze. Patient has body aches on palpation of major musculature.. Vital Signs: 08:20 BP 140 / 96; Pulse 84; Resp 16; Temp 98.2; Pulse Ox 100% on R/A; Weight 107.05 kg; ll1 Height 5 ft. 8 in. ; Pain 10/10; 09:53 BP 147 / 108; Pulse 66; Resp 16; Pulse Ox 100% ; bp 08:20 Body Mass Index 35.88 (107.05 kg, 172.72 cm) ll1 08:20 Pain Scale: Adult ll1 MDM: 08:11 Patient medically screened. sp3 09:42 Data reviewed: vital signs, nurses notes, lab test result(s), radiologic studies. ED sp3 course: 37-year-old female with upper respiratory infection with either viral or bacterial etiology. Clinically I am not highly suspicious for any other pathology including ACS, PE, sepsis, shock. Consider viral illness versus bronchitis versus pneumonia, among others. Workup will include swabs, chest x-ray and DuoNeb nebulizer for symptomatic improvement. Probable discharge home on p.o. antibiotics and Tessalon as needed.. 10:32 ED course: Patient's strep swab is positive. Will place patient on Augmentin and sp3 discharge home at this time.. 05/11 08:59 Order name: Flu; Complete Time: 10:31 ll1 05/11 08:59 Order name: Strep; Complete Time: 10:31 ll1 05/11 08:59 Order name: SARS RAPID; Complete Time: 10:31 ll1 05/11 08:59 Order name: Chest Single View XRAY; Complete Time: 09:48 ll1 Administered Medications: 09:53 Drug: DuoNeb Nebulize (3:1) (2.5 mg - 0.5 mg) 3 ml Nebulizer once Route: Nebulizer; bp 09:53 Drug: Ibuprofen PO 600 mg PO once Route: PO; bp Disposition Summary: 05/12/23 10:34 Discharge Ordered Notes: Location: Home sp3 Condition: Stable sp3 Diagnosis - Streptococcal pharyngitis sp3 Followup: sp3 - With: Private Physician - When: Upon discharge from the Emergency Department - Reason: Continuance of care Discharge Instructions: - Discharge Summary Sheet sp3 - Strep Throat, Adult sp3 Forms: - Medication Reconciliation Form sp3 - Thank You Letter sp3 - Antibiotic Education sp3 - Prescription Opioid Use sp3 - Patient Portal Instructions sp3 - Leadership Thank You Letter sp3 Prescriptions: - Augmentin 875-125 mg Oral Tablet - take 1 tablet ORAL route every 12 hours for 10 days; 20 tablet; Refills: 0, sp3 Product Selection Permitted - Fluconazole 150 mg Oral tablet - take 1 tablet ORAL route once daily; 2 tablet; Refills: 0, Product Selection sp3 Permitted Signatures: Dispatcher [facility] Hospital[facility]ik Bey RN RN Meño Ann RN RN ll1 Jed Ponce, MD sp3
[2023-05-12 11:16] VITALS: BP 147/108; TEMP 98.2; O2SAT 100
== END ==
LOC: ER 08:05
DX: J02.0 Streptococcal pharyngitis (principal); Z11.52 Encounter for screening for COVID-19; Z72.0 Tobacco use; Z88.8 Allergy status to other drugs, medicaments and biological substances; Z91.02 Food additives allergy status
CPT/HCPCS: 36415; 87081; 87804 ×2; 71045; 87811; J7613; J7644